=== PATIENT | female | born 1995 | race Caucasian/White ===

== ENCOUNTER 2025-08-04 07:59 | Inpatient (IN) | payer OTHER, SELFPAY ==
[2025-08-04 08:20] VITALS: BMI 27.8
[2025-08-04 08:23] VITALS: BP 129/76
[2025-08-04 08:58] LABS: Hematocrit 35.5 % (37.0-47.0); Hemoglobin 12.3 g/dL (12.0-16.0); Mean Corp Hgb Conc. 34.6 g/dL (33.0-37.0); Mean Corpuscular Volume 89.6 fL (81.0-99.0); Nucleated Red Blood Cells % 0 %; Platelet Count 218 10^3/uL (130-400); Red Cell Dist. Width 12.1 % (11.5-14.5)
[2025-08-04] MEDS: PITOCIN 30 UNITS/NSS 500 ML IV (09:26)
[2025-08-04] MEDS: LR 1000 IV (09:33)
[2025-08-04] MEDS: TUMS CHEWABLE TABLET 400 MG PO (19:54)
[2025-08-04] MEDS: SUBLIMAZE 100 MCG EPIDURAL (21:59)
[2025-08-04] MEDS: FENTANYL/BUPIVACAINE 100 EPIDURAL (22:00)
[2025-08-05] MEDS: COLACE 100 MG PO ×2 (07:48→21:10)
[2025-08-05] MEDS: TYLENOL 650 MG PO ×4 (07:48→21:10)
[2025-08-05] MEDS: PRENATAL PLUS 1 TABLET PO (07:49)
[2025-08-06 05:15] LABS: Hematocrit 33.1 % (37.0-47.0); Hemoglobin 11.6 g/dL (12.0-16.0)
[2025-08-06] MEDS: TYLENOL 650 MG PO ×2 (08:23→19:35)
[2025-08-06] MEDS: COLACE 100 MG PO ×2 (08:23→19:35)
[2025-08-06] MEDS: PRENATAL PLUS 1 TABLET PO (08:23)
[2025-08-07] MEDS: COLACE 100 MG PO (09:08)
[2025-08-07] MEDS: PRENATAL PLUS 1 TABLET PO (09:08)
[2025-08-09 14:56] LABS: Syphilis/T. pallidum Ab Reflex Negative (Negative)
== END 2025-08-07 12:43 | disposition home or self-care (01) | DRG 807 ==
LOC: LDRP 07:59
PROVIDERS: ADMITTING PHYSICIAN Obstetrics & Gynecology
PROC: 3E033VJ Introduction of Other Hormone into Peripheral Vein, Percutaneous Approach (ICD-10-PCS; 2025-08-04)
PROC: 0KQM0ZZ Repair Perineum Muscle, Open Approach (ICD-10-PCS; 2025-08-05)
PROC: 10E0XZZ Delivery of Products of Conception, External Approach (ICD-10-PCS; 2025-08-05)
DX: O48.0 Post-term pregnancy (principal); Z37.0 Single live birth; Z3A.40 40 weeks gestation of pregnancy; O69.81X0 Labor and delivery complicated by cord around neck, without compression, not applicable or unspecified; O70.1 Second degree perineal laceration during delivery
CPT/HCPCS: 36415; 85014; 85018; 85025; 86780; 86850; 86900; 86901